=== PATIENT | male | born 1965 | race Caucasian/White ===

== ENCOUNTER 2016-11-09 13:45 | Emergency (ER) | payer OTHER ==
--- NOTE | 2016-11-09 13:58 | PDOC ---
History of Present Illness - General Chief Complaint: Back Pain Stated Complaint: BACK PAIN Time Seen by Provider: 11/09/16 13:58 History Source: Patient Exam Limitations: No Limitations - History of Present Illness Initial Comments: 11/09/16 13:59 The patient is a 50-year-old male, with a significant past medical history of morbid obesity, who presents to the emergency department with right-sided low back pain. The pain began this past Friday, when he was lifting something heavy , and "twisted to the right." He describes the pain as a mild, dull ache. It is worsened by position change, and twisting at the waist. It does not radiate. He denies distal weakness or paresthesias. He denies fever, chills, sweats. He denies bladder or bowel incontinence or retention. He was seen at an urgent care, prescribed Flexeril, and has been taking it, without effect. Past History - Past Medical History Allergies/Adverse Reactions: Allergies Allergy/AdvReac Type Severity Reaction Status Date / Time No Known Allergies Allergy Verified 11/09/16 13:53 Home Medications: Ambulatory Orders Diazepam [Valium] 5 mg PO Q8H PRN #12 tablet MDD 3 11/09/16 Naproxen [Naprosyn] 500 mg PO BID PRN #20 tablet 11/09/16 Oxycodone HCl/Acetaminophen [Percocet 5-325 mg Tablet] 1 - 2 combo PO Q4H PRN # 20 tablet MDD 6 11/09/16 GI Disorders: Yes (REFLUX) - Psycho/Social/Smoking Cessation Hx Anxiety: No Suicidal Ideation: No Smoking Status: No Smoking History: Former smoker Have you smoked in the past 12 months: Yes Number of Cigarettes Smoked Daily: 0 'Breaking Loose' booklet given: 12/31/14 Hx Alcohol Use: No Drug/Substance Use Hx: No Substance Use Type: None Hx Substance Use Treatment: No Review of Systems - Review of Systems Comments:: 11/09/16 14:00 CONSTITUTIONAL: Absent: fever, chills, fatigue EYES: Absent: visual changes ENT: Absent: ear pain, sore throat CARDIOVASCULAR: Absent: chest pain, palpitations, loss of consciousness RESPIRATORY: Absent: cough, SOB GI: Absent: abdominal pain, nausea, vomiting, constipation, diarrhea GENITOURINARY: Absent: dysuria, frequency, hematuria MUSKULOSKELETAL: Present: back pain SKIN: Absent: rash NEURO: Absent: headache, dizziness *Physical Exam - Physical Exam Comments: 11/09/16 14:01 GENERAL: Patient is awake, alert and in no acute distress. Speech is clear and appropriate. HEAD: Atraumatic and nontender. HEENT: Pupils are equal round and reactive to light, extraocular movements are intact. NECK: The trachea is midline, there is no stridor. There is no midline cervical spine tenderness, full range of motion of neck. CHEST: Non-tender, no ecchymosis or abrasions. Equal chest wall expansion bilaterally. No flail segments. Lungs are clear to auscultation bilaterally. CARDIOVASCULAR: S1-S2, regular rate and rhythm. No murmurs or rubs. ABDOMEN: Soft, nontender, nondistended. Bowel sounds are normoactive. There is no abdominal or flank ecchymosis. BACK/PELVIS: There is mild, right lower lumbar paraspinal muscle spasm and associated tenderness. Palpation reproduces his symptoms. There is no midline thoracic or lumbosacral spine tenderness or step-off. Pelvis is stable and nontender. EXTREMITIES: There is no extremity deformity or joint swelling. No focal bony tenderness throughout. 2+ distal pulses throughout. NEURO: Alert and oriented x3. Cranial nerves II through XII are intact. 5 out of 5 motor strength x4 extremities. No gross sensory deficits. Mczawr-[id number]-[id number] is intact. No pronator drift. Gait is stable. SKIN: No abrasions, hematomas, lacerations. PSYCH: Affect is appropriate Medical Decision Making - Medical Decision Making 11/09/16 14:01 The patient is well-appearing and in no acute distress There is no evidence of bony injury His clinical presentation is most consistent with lumbar paraspinal muscle strain Clinical impression: Lumbar paraspinal muscle strain I discussed the physical exam findings, ancillary test results and final diagnoses with the patient. I answered all of the patient's questions. The patient was satisfied with the care received and felt comfortable with the discharge plan and treatment plan. The patient will call their primary care physician within 24 hours to arrange follow-up and will return to the Emergency Department with any new, persistent or worsening symptoms. *DC/Admit/Observation/Transfer Diagnosis at time of Disposition: Strain of lumbar paraspinous muscle - Discharge Dispostion Disposition: HOME Condition at time of disposition: Improved - Prescriptions Prescriptions: Naproxen [Naprosyn] 500 mg PO BID PRN #20 tablet PRN Reason: Pain Oxycodone HCl/Acetaminophen [Percocet 5-325 mg Tablet] 1 - 2 combo PO Q4H PRN # 20 tablet MDD 6 PRN Reason: Pain Diazepam [Valium] 5 mg PO Q8H PRN #12 tablet MDD 3 PRN Reason: Pain - Referrals Referrals: Frank Ruiz MD [Primary Care Provider] - - Patient Instructions Printed Discharge Instructions: DI for Muscle Strain Additional Instructions: Return to the emergency department immediately with ANY new, persistent or worsening symptoms. You MUST call and follow up with your doctor tomorrow. Please make sure your doctor reviews the results of your emergency department evaluation.
[2016-11-09 14:03] VITALS: BP 136/100; PULSE 94; TEMP 97.6; BMI 40.6
== END 2016-11-09 14:22 | disposition home or self-care (01) ==
LOC: FER 13:45
DX: S39.012A Strain of muscle, fascia and tendon of lower back, initial encounter (principal); X58.XXXA Exposure to other specified factors, initial encounter; Y93.9 Activity, unspecified; Y92.9 Unspecified place or not applicable; E66.01 Morbid (severe) obesity due to excess calories; Z68.41 Body mass index [BMI] 40.0-44.9, adult
CPT/HCPCS: 99282-25

== ENCOUNTER 2017-05-01 00:11 | Observation (INO) | payer OTHER ==
--- NOTE | 2017-05-01 00:12 | PDOC ---
History of Present Illness - General Chief Complaint: Chest Pain Stated Complaint: CHEST PAIN - History of Present Illness Initial Comments: This 51-year-old man with a history of GERD but no other significant past medical history, presents with left-sided chest pain. Pain began approximately 2 hours prior to presentation while he was sitting on his couch at home. He states that the pain is sharp, intermittent and lasting minutes at a time. No pain with movement; the pain is not elicited by deep breathing but when the pain occurs spontaneously, he has increase in severity with deep breathing. No cough, shortness of breath noted. He states that he had transient tingling in his left hand when pain first occurred, which has since resolved. He denies nausea/diaphoresis/radiation of the pain. He has had no trauma or overuse involving chest wall muscles. No previous history of this type of pain No recent febrile illness Patient has a history of GERD in the past but has not noted indigestion/ epigastric discomfort/regurgitation of gastric acid for over a year. He no longer takes the medication that he had been prescribed for his GERD. He denies any dietary indiscretion over the last few days. No history of recent alcohol use. Risk factors for coronary artery disease: Smoking (1 pack per day X20 years), obesity; no HTN/DM/family history/hyperlipidemia on no meds NKDA PMD:Frank Ruiz Past History - Past Medical History Allergies/Adverse Reactions: Allergies Allergy/AdvReac Type Severity Reaction Status Date / Time No Known Allergies Allergy Verified 05/01/17 00:12 Home Medications: Ambulatory Orders NK [No Known Home Medication] 05/01/17 GI Disorders: Yes (REFLUX) - Surgical History Appendectomy: Yes (AGE 6) - Psycho/Social/Smoking Cessation Hx Anxiety: No Suicidal Ideation: No Smoking Status: No Smoking History: Former smoker Have you smoked in the past 12 months: Yes Number of Cigarettes Smoked Daily: 0 'Breaking Loose' booklet given: 11/09/16 Hx Alcohol Use: No Drug/Substance Use Hx: No Substance Use Type: None Hx Substance Use Treatment: No Review of Systems - Review of Systems Able to Perform ROS?: Yes Comments:: 12 point review of systems is negative except for what is noted in the history of present illness *Physical Exam - Vital Signs Last Vital Signs Temp Pulse Resp BP Pulse Ox 97.8 F 65 19 129/82 94 L 05/01/17 02:48 05/01/17 02:48 05/01/17 02:48 05/01/17 02:48 05/01/17 02:40 - Physical Exam Comments: GENERAL: Adult male, alert and oriented 3, in no acute distress HEAD: Normal with no signs of trauma. EYES: PERRLA, EOMI, sclera anicteric, conjunctiva clear. ENT: Ears normal, nares patent, oropharynx clear without exudates. Moist mucous membranes. NECK: Normal range of motion, supple without lymphadenopathy, JVD, or masses. CHEST WALL: Mild tenderness left fifth intercostal space anterior axillary line ; no crepitus or step offs LUNGS: Breath sounds equal, clear to auscultation bilaterally. No wheezes, and no crackles. HEART:Regular rate and rhythm, normal S1 and S2 without murmur, rub or gallop. ABDOMEN:.normal bowel sounds No guarding,tenderness or rebound.No masses No distention. EXTREMITIES: Normal range of motion, no edema. No clubbing or cyanosis. No erythema, or tenderness. NEUROLOGICAL: Cranial nerves II through XII grossly intact. Normal speech. No focal neurological deficits. MUSCULOSKELETAL: Back non-tender to palpation, no CVA tenderness SKIN: Warm, Dry, normal turgor, no rashes or lesions noted. 12-lead electrocardiogram is performed and interpreted by me. This shows normal sinus rhythm at 73 bpm. Kershaw, intervals and wave forms are all normal. No evidence of acute ST or T-wave abnormalities. Heart Score/ECG Review - History History: Slightly suspicious - Electrocardiogram EKG: Normal - Age Age: 45-65 - Risk Factors Risk Factors Heart Score: Yes Smoking History, Yes Hx Obesity Based on the list above the patient has:: 1-2 risk factors - Troponin Troponin: </= normal limit - Score Heart Score - Total: 2 ED Treatment Course - LABORATORY CBC & Chemistry Diagram: 05/01/17 00:40 05/01/17 00:40 - ADDITIONAL ORDERS Additional order review: Laboratory Results 05/01/17 05/01/17 05/01/17 00:40 00:40 00:40 INR 1.02 D-Dimer 200 Sodium 141 Potassium 3.6 D Chloride 106 Carbon Dioxide 27 D Anion Gap 8 BUN 19 H D Creatinine 0.9 Creat Clearance w eGFR > 60 Random Glucose 126 H D Calcium 8.9 Total Bilirubin 0.4 AST 55 H D ALT 56 D Alkaline Phosphatase 91 Creatine Kinase 190 Creatine Kinase Index 1.2 CK-MB (CK-2) 2.391 Troponin I < 0.02 Total Protein 7.0 Albumin 3.6 05/01/17 00:40 RBC 4.47 MCV 93.4 MCHC 34.9 RDW 13.5 MPV 7.0 L Neutrophils % 41.2 L D Lymphocytes % 47.9 H D Monocytes % 8.8 D Eosinophils % 1.7 D Basophils % 0.4 D - RADIOLOGY Radiology Studies Ordered: Category Date Time Status CHEST X-RAY PORTABLE* [RAD] Stat Radiology 05/01/17 02:15 Taken Progress Note - Progress Note Progress Note: This 51-year-old man presents with a few hour history of left-sided chest pain; pain is intermittent and sharp, not related to exertion. When the pain is present, it is worsened with deep breathing. Patient has risk factors for coronary artery disease: Smoking and obesity. 12-lead electrocardiogram shows no evidence of acute ischemia or other abnormalities. Laboratory evaluation, including troponin and d-dimer are not elevated. Although pain pattern is somewhat atypical, because of patient's risk factors for coronary artery disease, patient should be admitted for observation/serial enzymes and EKG. Medical Decision Making - Medical Decision Making 05/01/17 02:55 Case discussed with Ginette Lindquist NP of [facility]. Patient will be admitted to observation status, telemetry bed. Portable chest x-ray performed and interpreted by me: Shows no evidence of acute process with no effusion/infiltrates/masses. It is unchanged from chest x -ray dated 12/31/14 *DC/Admit/Observation/Transfer Diagnosis at time of Disposition: Chest pain Qualifiers: Chest pain type: unspecified Qualified Code(s): R07.9 - Chest pain, unspecified - Discharge Dispostion Condition at time of disposition: Fair Admit: Yes Decision to Admit order Date/Time: Decision to Admit Order Category Date Time Status Decision to Admit to Hospital Routine Admission 05/01/17 02:33 Active
[2017-05-01 01:18] LABS: BASOPHIL 0.4 % (0-2.0); EOSINOPHIL 1.7 % (0-4.5); MCH 32.6 pg (25.7-33.7); MCHC 34.9 g/dl (32.0-35.9); MEAN CELL VOLUME 93.4 fl (80-96); NEUTROPHILS 41.2 % (42.8-82.8); PLATELET COUNT 179 K/MM3 (134-434); RDW 13.5 % (11.9-15.9); WHITE BLOOD COUNT 7.1 K/mm3 (4.0-10.0)
[2017-05-01 01:33] LABS: INR 1.02 (0.82-1.09); PROTHROMBIN TIME (PATIENT) 11.2 SEC (9.98-11.88)
[2017-05-01 01:43] LABS: ALBUMIN 3.6 g/dl (3.4-5.0); ANION GAP 8 (8-16); CALCIUM 8.9 mg/dL (8.5-10.1); CO2 27 mmol/L (21-32); CREATININE 0.9 mg/dL (0.7-1.3); GLUCOSE,RANDOM 126 mg/dL (74-106); SGOT/AST 55 U/L (15-37); SGPT/ALT 56 U/L (12-78)
[2017-05-01 01:46] LABS: ALK PHOS 91 U/L (45-117); BILIRUBIN,TOTAL 0.4 mg/dL (0.2-1.0); CPK 190 IU/L (39-308); TROPONIN I < 0.02 ng/ml (0.00-0.05)
[2017-05-01 04:34] VITALS: BMI 34.3
--- NOTE | 2017-05-01 07:06 | HP ---
CHIEF COMPLAINT: chest pain PCP: Dr Barry HISTORY OF PRESENT ILLNESS: patient is a 51 y/o obese male with no significant past medical history. He report on 1030pm on 04/30/17 he was sitting watching TV and developed a sharp stabbing pain to the left anterior chest. He denies any radiation of the pain but does report numbness to the left hand. He does reports the pain resolved spontaneously on its own. He reports intermittent sharp stabbing pain the worsens upon inspiration. Patient denies any dizziness or lightheadness. ER course was notable for: (1) troponin x 1 wnl (2)ekg normal axis, normal sinus rhythmn (3) Recent Travel: none PAST MEDICAL HISTORY: GERD PAST SURGICAL HISTORY: appendectomy at 6 years old Social History: employed (instrumentation engineer) Smoking: smokes a pack of cigarettes daily Alcohol: social Drugs: none Family History: mother alive and well, father alive and well, denies any pmh brother, , congential heart defect Allergies No Known Allergies Allergy (Verified 05/01/17 00:12) HOME MEDICATIONS: Home Medications Medication Instructions Recorded NK [No Known Home Medication] 05/01/17 REVIEW OF SYSTEMS CONSTITUTIONAL: Absent: fever, chills, diaphoresis, generalized weakness, malaise, loss of appetite, weight change HEENT: Absent: rhinorrhea, nasal congestion, throat pain, throat swelling, difficulty swallowing, mouth swelling, ear pain, eye pain, visual changes CARDIOVASCULAR: Present: chest pain Absent: syncope, palpitations, irregular heart rate, lightheadedness, peripheral edema RESPIRATORY: Absent: cough, shortness of breath, dyspnea with exertion, orthopnea, wheezing, stridor, hemoptysis GASTROINTESTINAL: Absent: abdominal pain, abdominal distension, nausea, vomiting, diarrhea, constipation, melena, hematochezia GENITOURINARY: Absent: dysuria, frequency, urgency, hesitancy, hematuria, flank pain, genital pain MUSCULOSKELETAL: Absent: myalgia, arthralgia, joint swelling, back pain, neck pain SKIN: Absent: rash, itching, pallor HEMATOLOGIC/IMMUNOLOGIC: Absent: easy bleeding, easy bruising, lymphadenopathy, frequent infections ENDOCRINE: Absent: unexplained weight gain, unexplained weight loss, heat intolerance, cold intolerance NEUROLOGIC: Absent: headache, focal weakness or paresthesias, dizziness, unsteady gait, seizure, mental status changes, bladder or bowel incontinence PSYCHIATRIC: Absent: anxiety, depression, suicidal or homicidal ideation, hallucinations. PHYSICAL EXAMINATION Vital Signs - 24 hr 05/01/17 02:48 Temperature 97.8 F Pulse Rate 65 Respiratory 19 Rate Blood Pressure 129/82 GENERAL: obese, Awake, alert, and fully oriented, in no acute distress. HEAD: Normal with no signs of trauma. EYES: Pupils equal, round and reactive to light, extraocular movements intact, sclera anicteric, conjunctiva clear. No lid lag. EARS, NOSE, THROAT: Ears normal, nares patent, oropharynx clear without exudates. Moist mucous membranes. NECK: Normal range of motion, supple without lymphadenopathy, JVD, or masses. LUNGS: Breath sounds equal, clear to auscultation bilaterally. No wheezes, and no crackles. No accessory muscle use. HEART: Regular rate and rhythm, normal S1 and S2, 2/6 systolic murmur, no rub or gallop. ABDOMEN: Soft, nontender, not distended, normoactive bowel sounds, no guarding, no rebound, no masses. No hepatomegaly or splenomegaly. MUSCULOSKELETAL: Normal range of motion at all joints. No bony deformities or tenderness. No CVA tenderness. UPPER EXTREMITIES: 2+ pulses, warm, well-perfused. No cyanosis. No clubbing. No peripheral edema. LOWER EXTREMITIES: 2+ pulses, warm, well-perfused. No calf tenderness. No peripheral edema. NEUROLOGICAL: Cranial nerves II-XII intact. Normal speech. Normal gait. PSYCHIATRIC: Cooperative. Good eye contact. Appropriate mood and affect. SKIN: Warm, dry, normal turgor, no rashes or lesions noted, normal capillary refill. ASSESSMENT/PLAN: 1) card chest pain r/o acs - troponin x 1 wnl, pending 2nd and third - systolic murmur noted on exam, pt denies any prior history, echo ordered - pt does report eating at 2100 yesterday and has a prior history of GERD, will order protonix - elevated AST noted, will order lipid profile - pt does reports pain upon inspiration, hypoxia noted, will order cta of chest r/o pe - continuous cardiac monitoring f/e/n - low sodium, low cholesterol diet - electrolytes ppx - protonix - oob dispo: requires 24 hour telemetry observation Visit type - Emergency Visit Emergency Visit: Yes ED Registration Date: 05/01/17 Care time: The patient presented to the Emergency Department on the above date and was hospitalized for further evaluation of their emergent condition. - New Patient This patient is new to me today: Yes Date on this admission: 05/01/17 - Critical Care Critical Care patient: No
[2017-05-01 08:13] LABS: CPK 169 IU/L (39-308)
[2017-05-01 09:12] LABS: TROPONIN I (DFP) < 0.03 ng/ml (0.03-0.50)
--- NOTE | 2017-05-01 09:53 | EKG ---
Test Reason : Blood Pressure : / mmHG Vent. Rate : 073 BPM Atrial Rate : 073 BPM P-R Int : 208 ms QRS Dur : 110 ms QT Int : 390 ms P-R-T Axes : 025 046 026 degrees QTc Int : 429 ms NORMAL SINUS RHYTHM NORMAL ECG WHEN COMPARED WITH ECG OF 12-OCT-2011 22:05, NO SIGNIFICANT CHANGE WAS FOUND Confirmed by SINAN VALENTIN MD ([id number]) on 05/01/2017 9:53:33 AM Referred By: MD FISH Confirmed By:SINAN VALENTIN MD
[2017-05-01] MEDS ORDERED: PANTOPRAZOLE 40 MG TABLET (FP) PO SCH (10:00)
[2017-05-01 13:56] LABS: CPK 152 IU/L (39-308)
[2017-05-01 14:07] VITALS: BP 127/87; PULSE 31; TEMP 99.1
[2017-05-01 14:50] LABS: TROPONIN I (DFP) < 0.03 ng/ml (0.03-0.50)
== END 2017-05-01 16:10 | disposition home or self-care (01) ==
LOC: FER 00:11 → FM/S 02:40
PROVIDERS: ADMIT Internal Medicine; ATTEND Nurse Practitioner Family
DX: R07.9 Chest pain, unspecified (principal); K21.9 Gastro-esophageal reflux disease without esophagitis; Z87.891 Personal history of nicotine dependence
CPT/HCPCS: 36415; 71010-TC; 71260-TC; 80053; 82553; 84484; 85025; 85379; 85610; 93005; 93306-TC; 99285-25; G0378

== ENCOUNTER 2018-04-26 18:31 | Emergency (ER) | payer OTHER ==
[2018-04-26 18:49] VITALS: TEMP 98.1; BMI 41.3
--- NOTE | 2018-04-26 19:25 | PDOC ---
History of Present Illness - History of Present Illness Initial Comments: The patient is 52 year old male with PMHx of sleep apnea, fatty liver, who was referred from urgent care for high blood pressure and abnormal EKG. The patient states that earlier today he experienced a headache, his mother is a nurse and she took his blood pressure and was concerned with how high it was (158/96) so she urged him to go to urgent care. The urgent care facility sent the patient to the ER due to his high blood pressure and abnormal EKG. The patient states that he still has a headache that he rates 4/10. The patient denies any nausea, vomiting, blurry vision, chest pain, shortness of breath, leg swelling, recent travel, or h/o blood clots. PCP: Frank Ruiz Social History: cigarette smoker Family Hx: HTN - mother <Louise Chu - Last Filed: 04/26/18 19:40> <Tristin Suazo - Last Filed: 04/26/18 20:40> - General Chief Complaint: Blood Pressure Problem Stated Complaint: HIGH BLOOD PRESSURE Time Seen by Provider: 04/26/18 19:15 Past History <Louise Chu - Last Filed: 04/26/18 19:40> - Past Medical History COPD: No GI Disorders: Yes (REFLUX) - Surgical History Appendectomy: Yes (AGE 6) - Suicide/Smoking/Psychosocial Hx Smoking Status: No Smoking History: Former smoker Have you smoked in the past 12 months: Yes Number of Cigarettes Smoked Daily: 20 Information on smoking cessation initiated: Yes 'Breaking Loose' booklet given: 11/09/16 Hx Alcohol Use: Yes (SOCIAL) Drug/Substance Use Hx: No Substance Use Type: None Hx Substance Use Treatment: No <Tristin Suazo - Last Filed: 04/26/18 20:40> - Past Medical History Allergies/Adverse Reactions: Allergies Allergy/AdvReac Type Severity Reaction Status Date / Time No Known Allergies Allergy Verified 04/26/18 18:39 Home Medications: Ambulatory Orders Aspirin [ASA -] 162 mg PO ONCE 04/26/18 Review of Systems - Review of Systems Comments:: A complete review of 10 out of 10 review of systems is taken and is negative apart from what is previously mentioned below and in the HPI. Constitutional: no recent illness; no fever ENT: no sore throat Cardiovascular: no palpitations; no chest pain Pulmonary: no cough; no trouble breathing Gastrointestinal: No nausea; no vomiting; no diarrhea Genitourinary: No urinary problems; no hematuria Skin: No rash Lymph system: No swollen glands Musculoskeletal: No joint swelling Neurological: No weakness; No numbness; +Headache; no vertigo; no lightheadedness Psychiatric:No anxiety; no depression <Louise Chu - Last Filed: 04/26/18 19:40> *Physical Exam - Vital Signs Last Vital Signs Temp Pulse Resp BP Pulse Ox 98.1 F 75 19 125/83 96 04/26/18 18:32 04/26/18 19:10 04/26/18 19:00 04/26/18 19:00 04/26/18 19:10 - Physical Exam Comments: Vitals: Triage Vital signs reviewed General Appearance: no acute distress, well nourished well developed Head: Atraumatic Cardiac: Regular rate and rhythm, no murmurs, no rubs, no gallops Lungs: Clear to auscultation bilateral, good air movement bilaterally Abdomen: Soft, protuberant, non distended, normal bowel sounds, non tender to palpation Extremities: Full range of motion to all extremities, no cyanosis, clubbing, or edema Skin: Warm and dry, no rashes or lesions, no rash, no petechiae Neuro: AOX3; Cranial Nerves 2-12 grossly intact, Strength intact to all extremities, Sensation intact to all extremities, gait normal Psych: Normal mood, normal affect <Louise Chu - Last Filed: 04/26/18 19:40> - Vital Signs Last Vital Signs Temp Pulse Resp BP Pulse Ox 98.1 F 75 19 125/83 96 04/26/18 18:32 04/26/18 19:10 04/26/18 19:00 04/26/18 19:00 04/26/18 19:10 <Tristin Suazo - Last Filed: 04/26/18 20:40> Heart Score/ECG Review - ECG Impressions Comment:: 04/26/18 19:25 EKG performed at 1854 demonstrates sinus rhythm no ST elevations no T-wave inversions incomplete right bundle-branch block, first-degree AV block, Interpreted by me No significant change when compared to April 2017. <Tristin Suazo - Last Filed: 04/26/18 20:40> ED Treatment Course - LABORATORY CBC & Chemistry Diagram: 04/26/18 19:30 04/26/18 19:30 - RADIOLOGY Radiology Studies Ordered: Category Date Time Status HEAD CT WITHOUT CONTRAST [CT] Stat CT Scan 04/26/18 19:24 Ordered <Tristin Suazo - Last Filed: 04/26/18 20:40> Medical Decision Making - Medical Decision Making 04/26/18 20:39 Well-appearing no apparent distress patient sent from urgent care for mild headache and elevated blood pressure Nonischemic EKG heart score 2 Patient with very mild headache no red flags in patient's headache history Here in the emergency department patient's blood pressure nonsignificantly elevated normal neurologic examination given his complaints a head CT labs troponin were ordered Reevaluation 830 patient's headache improving blood pressure not at a level requiring emergent intervention. His head CT is unremarkable his labs are unremarkable as troponin is negative History and exam consistent with essential hypertension. Patient will follow up with his primary care provider tomorrow to initiate antihypertensive therapy Findings, the need for follow-up and strict return instructions discussed with patient. <Tristin Suazo - Last Filed: 04/26/18 20:40> *DC/Admit/Observation/Transfer - Attestations Scribe Attestion: 04/26/18 19:42 Documentation prepared by Louise Chu, acting as medical physics researcher for Tristin Suazo MD. <Louise Chu - Last Filed: 04/26/18 19:40> - Discharge Dispostion Decision to Admit order: No <Tristin Suazo - Last Filed: 04/26/18 20:40> Diagnosis at time of Disposition: Hypertension Qualifiers: Hypertension type: unspecified Qualified Code(s): I10 - Essential (primary) hypertension - Discharge Dispostion Disposition: HOME Condition at time of disposition: Good - Referrals Referrals: Frank Ruiz MD [Primary Care Provider] - - Patient Instructions Printed Discharge Instructions: DI for High Blood Pressure Additional Instructions: Follow-up tomorrow with your primary care provider to discuss your elevated high blood pressure. Stop smoking cigarettes. Purchase an [id number] nicotine patch at pharmacy. Return to ED for any severe worsening headache chest pain shortness of breath or for any concerns. - Post Discharge Activity
[2018-04-26 19:54] LABS: BASO % 0.4 % (0-2.0); EOS % 1.7 % (0-4.5); HEMATOCRIT 44.1 % (35.4-49); HEMOGLOBIN 15.2 GM/dl (11.7-16.9); LYMPH % 35.2 % (8-40); MCH 33.1 pg (25.7-33.7); MCHC 34.5 g/dl (32.0-35.9); MEAN CELL VOLUME 95.9 fl (80-96); MEAN PLT VOLUME 6.7 fl (7.5-11.1); MONO % 7.6 % (3.8-10.2); NEUT % 55.1 % (42.8-82.8); PLATELET COUNT 198 K/MM3 (134-434); RBC 4.59 M/mm3 (4.00-5.60); RDW 12.1 % (11.9-15.9); WHITE BLOOD COUNT 7.4 K/mm3 (4.0-10.8)
[2018-04-26 20:00] LABS: ANION GAP 6 (8-16); BLOOD UREA NITROGEN 15 mg/dl (7-18); CALCIUM 8.6 mg/dl (8.4-10.2); CHLORIDE 104 mmol/L (98-107); CO2 23 mmol/L (22-28); CREATININE 0.7 mg/dl (0.6-1.3); GLUCOSE,RANDOM 121 mg/dl (74-106); POTASSIUM 3.7 mmol/L (3.5-5.1); SODIUM 133 mmol/L (136-145)
[2018-04-26 20:45] VITALS: BP 121/94; PULSE 75
--- NOTE | 2018-04-27 10:49 | EKG ---
Test Reason : Blood Pressure : / mmHG Vent. Rate : 075 BPM Atrial Rate : 075 BPM P-R Int : 210 ms QRS Dur : 106 ms QT Int : 380 ms P-R-T Axes : 017 029 024 degrees QTc Int : 424 ms SINUS RHYTHM WITH 1ST DEGREE A-V BLOCK OTHERWISE NORMAL ECG WHEN COMPARED WITH ECG OF 01-MAY-2017 00:17, NO SIGNIFICANT CHANGE WAS FOUND Confirmed by ZEV HARRIS MD ([id number]) on 04/27/2018 10:49:04 AM Referred By: Li ORTIZ Confirmed By:ZEV HARRIS MD
== END 2018-04-26 20:51 | disposition home or self-care (01) ==
LOC: FER 18:31
DX: I10 Essential (primary) hypertension (principal)
CPT/HCPCS: 36415; 70450-TC; 80048; 84484; 85025; 93005; 99284-25